=== PATIENT | male | born 1940 | race Caucasian/White ===

== ENCOUNTER 2017-07-31 16:14 | Inpatient (IN) | payer MEDICARE ==
[~2017-07-31] VITALS: Ht 177.8 cm; Wt 58.5 kg
[2017-07-31 17:10] LABS: BASOPHILS % 0.8 % (0.0-2.0); EOSINOPHILS % 2.9 % (0.0-5.0); HEMATOCRIT. 36.4 % (42.0-52.0); HEMOGLOBIN. 11.4 g/dL (14.0-18.0); LYMPHOCYTES % 27.3 % (20.0-50.0); MEAN CORPUSCULAR HEMOGLOBIN 25.9 pg (28.0-32.0); MEAN PLATELET VOLUME 9.1 fl (7.4-10.4); MONOCYTES % 10.5 % (2.0-8.0); NEUTROPHILS % 58.5 % (40.0-76.0); PLATELET 327 x1000/uL (130-400); RED BLOOD CELL COUNT 4.39 mill/uL (4.7-6.1); RED CELL DISTRIBUTION WIDTH 18.8 % (11.6-14.6)
[2017-07-31 17:15] LABS: INR 1.2; PROTHROMBIN TIME 12.4 sec (9.4-11.6)
[2017-07-31 17:18] LABS: CARBON DIOXIDE 26 mEq/L (21-32); CHLORIDE 107 mEq/L (98-107)
[2017-07-31 17:24] LABS: TROPONIN I 0.03 ng/mL (0.00-0.04)
[2017-07-31 18:41] LABS: *AMPHETAMINES SCREEN URINE NEGATIVE (NEGATIVE); *BARBITURATES SCREEN URINE NEGATIVE (NEGATIVE); *BENZODIAZEPINES SCREEN URINE PRESUMTIVE POSITIVE (NEGATIVE); *COCAINE SCREEN URINE NEGATIVE (NEGATIVE); CANNABINOID URINE SCREEN NEGATIVE (NEGATIVE); METHADONE URINE SCREEN NEGATIVE (NEGATIVE); OPIATES URINE SCREEN NEGATIVE (NEGATIVE); PHENCYCLIDINE URINE SCREEN NEGATIVE (NEGATIVE)
[2017-07-31] MEDS ORDERED: CLONIDINE 0.1MG TABLET PO PRN (21:00)
[2017-07-31] MEDS ORDERED: ONDANSETRON HCL 4MG/2ML VIAL IV PRN (21:00)
[2017-07-31] MEDS ORDERED: ACETAMINOPHEN 325MG TABLET PO PRN (21:00)
[2017-07-31] MEDS ORDERED: LEVO25TA7 PO (21:43)
[2017-07-31] MEDS ORDERED: GLIM1TAB2 PO (21:50)
[2017-07-31] MEDS ORDERED: APIX5TAB PO (21:50)
[2017-07-31] MEDS ORDERED: ATOR20TA65 PO (21:50)
[2017-07-31] MEDS ORDERED: BENA40TA3 PO (21:50)
[2017-07-31] MEDS ORDERED: METF-517 PO (21:50)
[2017-07-31] MEDS ORDERED: TRAM50TA3 PO (21:50)
[2017-07-31] MEDS: DEXT 5%/0.45% NACL 1000ML 1,000 ML IV SCH (21:58)
[2017-08-01 01:35] VITALS: BP 134/67
[2017-08-01] MEDS ORDERED: DEXTROSE 50% WATER 50ML SYRINGE IV PRN (04:45)
[2017-08-01 05:32] VITALS: BP 127/57
[2017-08-01 06:10] LABS: BASOPHILS % 0.4 % (0.0-2.0); EOSINOPHILS % 2.9 % (0.0-5.0); HEMATOCRIT. 36.8 % (42.0-52.0); LYMPHOCYTES % 24.6 % (20.0-50.0); MEAN CORPUSCULAR HEMOGLOBIN 26.9 pg (28.0-32.0); MEAN CORPUSCULAR VOLUME 82.2 fL (80.0-94.0); MEAN PLATELET VOLUME 9.8 fl (7.4-10.4); MONOCYTES % 11.1 % (2.0-8.0); PLATELET 308 x1000/uL (130-400); RED BLOOD CELL COUNT 4.47 mill/uL (4.7-6.1); RED CELL DISTRIBUTION WIDTH 19.1 % (11.6-14.6)
[2017-08-01 06:19] LABS: CHLORIDE 104 mEq/L (98-107)
[2017-08-01 06:34] LABS: CARBON DIOXIDE 24 mEq/L (21-32)
[2017-08-01] MEDS: BLOOD SUGAR DIAGNOSTIC STRIP TEST SCH ×4 (07:53→21:36)
[2017-08-01] MEDS: INSULIN LISPRO 100 UNITS/ML SUBCUT SCH ×4 (07:54→21:52)
[2017-08-01 08:22] VITALS: BP 144/72
[2017-08-01] MEDS: HYDROCODONE/ACETAMINOPHEN 5/325MG TABLET PO PRN ×2 (09:18→21:43)
[2017-08-01 12:29] VITALS: BP 136/62
[2017-08-01] MEDS: APIXABAN 5 MG TABLET PO SCH ×2 (12:37→17:01)
[2017-08-01] MEDS: BENAZEPRIL 20MG TABLET PO SCH (12:37)
[2017-08-01] MEDS: DEXT 5%/0.45% NACL 1000ML 1,000 ML IV SCH (12:38)
[2017-08-01 16:22] VITALS: BP 132/59
[2017-08-01 20:00] VITALS: BP 153/76
[2017-08-01] MEDS: ATORVASTATIN CALCIUM 20MG TABLET PO SCH (21:42)
[2017-08-02] VITALS: BP 145/62
[2017-08-02 04:00] VITALS: BP 129/63
[2017-08-02] MEDS: DEXT 5%/0.45% NACL 1000ML 1,000 ML IV SCH (06:22)
[2017-08-02] MEDS: LEVOTHYROXINE SODIUM 25MCG TABLET PO SCH (06:23)
[2017-08-02] MEDS: BLOOD SUGAR DIAGNOSTIC STRIP TEST SCH ×4 (06:23→20:31)
[2017-08-02] MEDS: GLIMEPIRIDE 1MG TABLET PO SCH (06:23)
[2017-08-02] MEDS: INSULIN LISPRO 100 UNITS/ML SUBCUT SCH ×4 (06:47→20:36)
[2017-08-02 08:00] VITALS: BP 118/67
[2017-08-02] MEDS: APIXABAN 5 MG TABLET PO SCH ×2 (08:12→17:29)
[2017-08-02] MEDS: BENAZEPRIL 20MG TABLET PO SCH (08:12)
[2017-08-02 12:00] VITALS: BP 130/65
[2017-08-02] MEDS: REPAGLINIDE 1MG TABLET PO SCH ×2 (13:48→17:29)
[2017-08-02 16:00] VITALS: BP 136/76
[2017-08-02] MEDS: METFORMIN HCL 500MG SR TABLET 24HR PO SCH (17:29)
[2017-08-02 20:00] VITALS: BP 123/86
[2017-08-02] MEDS: ATORVASTATIN CALCIUM 20MG TABLET PO SCH (20:28)
[2017-08-02] MEDS: HYDROCODONE/ACETAMINOPHEN 5/325MG TABLET PO PRN (20:32)
[2017-08-03] VITALS: BP 118/78
[2017-08-03 04:00] VITALS: BP 123/68
[2017-08-03] MEDS: DEXT 5%/0.45% NACL 1000ML 1,000 ML IV SCH (05:46)
[2017-08-03] MEDS: INSULIN LISPRO 100 UNITS/ML SUBCUT SCH ×4 (05:59→20:32)
[2017-08-03] MEDS: BLOOD SUGAR DIAGNOSTIC STRIP TEST SCH ×4 (06:10→20:32)
[2017-08-03] MEDS: LEVOTHYROXINE SODIUM 25MCG TABLET PO SCH (06:10)
[2017-08-03] MEDS: GLIMEPIRIDE 1MG TABLET PO SCH ×2 (06:10→17:48)
[2017-08-03 08:00] VITALS: BP 126/55
[2017-08-03] MEDS: METFORMIN HCL 500MG SR TABLET 24HR PO SCH ×2 (09:29→17:48)
[2017-08-03] MEDS: BENAZEPRIL 20MG TABLET PO SCH (09:30)
[2017-08-03] MEDS: REPAGLINIDE 1MG TABLET PO SCH ×3 (09:30→18:36)
[2017-08-03] MEDS: APIXABAN 5 MG TABLET PO SCH ×2 (09:30→17:47)
[2017-08-03] MEDS ORDERED: MAGNESIUM HYDROXIDE 400MG/5ML 30ML UDC PO PRN (11:45)
[2017-08-03 12:00] VITALS: BP 141/82
[2017-08-03] MEDS: DOCUSATE SODIUM 100MG CAPSULE PO SCH ×3 (12:47→17:48)
[2017-08-03 16:00] VITALS: BP 119/63
[2017-08-03 19:59] VITALS: BP 134/56
[2017-08-03] MEDS: ATORVASTATIN CALCIUM 20MG TABLET PO SCH (20:38)
[2017-08-03] MEDS ORDERED: ZOLPIDEM TARTRATE 5MG TABLET PO PRN (21:00)
[2017-08-04] VITALS: BP 136/55
[2017-08-04] MEDS: DEXT 5%/0.45% NACL 1000ML 1,000 ML IV SCH ×2 (02:25→08:22)
[2017-08-04 04:00] VITALS: BP 141/61
[2017-08-04] MEDS: LEVOTHYROXINE SODIUM 25MCG TABLET PO SCH (06:17)
[2017-08-04] MEDS: GLIMEPIRIDE 1MG TABLET PO SCH (06:17)
[2017-08-04] MEDS: BLOOD SUGAR DIAGNOSTIC STRIP TEST SCH ×4 (06:22→20:49)
[2017-08-04] MEDS: INSULIN LISPRO 100 UNITS/ML SUBCUT SCH ×4 (06:22→21:00)
[2017-08-04 08:00] VITALS: BP 138/45
[2017-08-04] MEDS: BENAZEPRIL 20MG TABLET PO SCH (08:21)
[2017-08-04] MEDS: APIXABAN 5 MG TABLET PO SCH ×2 (08:21→17:18)
[2017-08-04] MEDS: METFORMIN HCL 500MG SR TABLET 24HR PO SCH ×2 (08:22→17:18)
[2017-08-04] MEDS: DOCUSATE SODIUM 100MG CAPSULE PO SCH ×2 (08:22→17:00)
[2017-08-04] MEDS: REPAGLINIDE 1MG TABLET PO SCH ×3 (08:22→17:18)
[2017-08-04 12:00] VITALS: BP 136/73
[2017-08-04 16:00] VITALS: BP 138/57
[2017-08-04] MEDS ORDERED: ZOLPIDEM TARTRATE 5MG TABLET PO PRN (19:30)
[2017-08-04 20:00] VITALS: BP 137/57
[2017-08-04] MEDS: ATORVASTATIN CALCIUM 20MG TABLET PO SCH (21:45)
[2017-08-05] VITALS: BP 135/50
[2017-08-05 04:00] VITALS: BP 131/54
[2017-08-05] MEDS: BLOOD SUGAR DIAGNOSTIC STRIP TEST SCH ×2 (05:56→11:26)
[2017-08-05] MEDS: INSULIN LISPRO 100 UNITS/ML SUBCUT SCH ×2 (06:21→11:57)
[2017-08-05] MEDS: LEVOTHYROXINE SODIUM 25MCG TABLET PO SCH (07:21)
[2017-08-05] MEDS: GLIMEPIRIDE 1MG TABLET PO SCH (07:21)
[2017-08-05 07:34] VITALS: BP 136/60
[2017-08-05] MEDS: DOCUSATE SODIUM 100MG CAPSULE PO SCH (08:15)
[2017-08-05] MEDS: BENAZEPRIL 20MG TABLET PO SCH (08:15)
[2017-08-05] MEDS: METFORMIN HCL 500MG SR TABLET 24HR PO SCH (08:15)
[2017-08-05] MEDS: APIXABAN 5 MG TABLET PO SCH (08:15)
[2017-08-05] MEDS: REPAGLINIDE 1MG TABLET PO SCH ×2 (08:15→11:56)
[2017-08-05 10:10] VITALS: BP 136/61
[2017-08-05 11:16] VITALS: BP 121/58
== END 2017-08-05 12:28 | DRG 91 ==
LOC: ER 16:27 → 8WST 19:00 → SUPCPDRO 20:51 → CANRESERV 21:11 → ENRESERV 21:11 → EDBEDREQSVC 22:21 → ENRESERV 22:51
PROVIDERS: ADMIT Hospitalist; ATTEND Hospitalist
DX: G92 Toxic encephalopathy (principal); E43 Unspecified severe protein-calorie malnutrition; E11.9 Type 2 diabetes mellitus without complications; D64.9 Anemia, unspecified; I10 Essential (primary) hypertension; Z68.1 Body mass index [BMI] 19.9 or less, adult; W06.XXXA Fall from bed, initial encounter; Z82.49 Family history of ischemic heart disease and other diseases of the circulatory system; Y92.003 Bedroom of unspecified non-institutional (private) residence as the place of occurrence of the external cause; Y93.89 Activity, other specified; Y99.8 Other external cause status
CPT/HCPCS: 36415; 70450; 71045; 80053; 80305; 82962; 83880; 84484; 85025; 85610; 92610; 93005; 93970; 97162; 99285; J1815